=== PATIENT | female | born 1955 | race Caucasian/White ===

== ENCOUNTER 2022-07-23 14:44 | Emergency (ER) | payer BC ==
[~2022-07-23] VITALS: Ht 160 cm; Wt 63.5 kg
--- NOTE | 2022-07-23 16:19 | NUR ---
AT BEDSIDE FOR EVAL
--- NOTE | 2022-07-23 16:20 | NUR ---
IV ACCESS ESTABLISHED 20G RIGHT AC. BLOOD DRAWN AND SENT TO LAB
[2022-07-23] MEDS ORDERED: ONDANSETRON HCL/PF 4 MG/2 ML VIAL IVP ONE (16:30)
[2022-07-23] MEDS ORDERED: IV NS 0.9% 1,000 ML BAG IV ONE (16:30)
[2022-07-23] MEDS ORDERED: KETOROLAC TROMETHAMINE INJ 30 MG/ML VIAL IV ONE (16:30)
[2022-07-23] MEDS ORDERED: KETOROLAC TROMETHAMINE 15 MG/ML VIAL ONE (16:31)
[2022-07-23] MEDS ORDERED: ONDANSETRON HCL/PF 4 MG/2 ML VIAL ONE (16:31)
--- NOTE | 2022-07-23 16:40 | NUR ---
URINE SAMPLE COLLECTED AND SENT TO LAB
[2022-07-23 16:42] LABS: BASOPHILS % (AUTO) 0.7 % (0.0-2.0); EOSINOPHILS % (AUTO) 2.3 % (0.0-6.0); HEMATOCRIT 42 % (33-45); HEMOGLOBIN 13.7 g/dL (11.5-14.8); LYMPHOCYTES % (AUTO) 33.1 % (20.0-44.0); MEAN CORPUSCULAR HGB CONC 33 g/dl (31.0-36.0); MEAN CORPUSCULAR VOLUME 85 fL (82-100); MONOCYTES % (AUTO) 9.5 % (2.0-12.0); NEUTROPHILS % (AUTO) 54.4 % (43.0-81.0); PLATELET COUNT (AUTO) 258 K/uL (150-450); RED BLOOD CELL COUNT(AUTO) 4.87 MIL/uL (4.0-5.2); WHITE BLOOD COUNT (AUTO) 7.8 K/uL (4.3-11.0)
[2022-07-23 16:43] LABS: BASOPHILS # (AUTO) 0.1 K/uL (0.0-0.2); LYMPHOCYTES # (AUTO) 2.6 K/uL (0.8-4.8); MONOCYTES # (AUTO) 0.7 K/uL (0.1-1.30); NEUTROPHILS # (AUTO) 4.2 K/uL (1.8-8.9)
[2022-07-23 17:03] LABS: CALCIUM, SERUM 9.4 mg/dL (8.5-10.1); CREATININE 0.7 mg/dL (0.6-1.3); POTASSIUM 4.3 mmol/L (3.5-5.1)
[2022-07-23 17:09] LABS: ALBUMIN 3.7 g/dL (3.4-5.0); BILIRUBIN,DIRECT 0.1 mg/dL (0.0-0.2); BILIRUBIN,TOTAL 0.3 mg/dL (0.2-1.0); TOTAL PROTEIN, SERUM 6.9 g/dL (6.4-8.2)
[2022-07-23] MEDS ORDERED: IOHEXOL-300 100 ML VIAL IV ONE (17:17)
[2022-07-23] MEDS ORDERED: IV NS 0.9% 250 ML IV ONE (17:17)
[2022-07-23 19:15] LABS: BILIRUBIN,URINE NEGATIVE (NEGATIVE); COLOR,URINE YELLOW (YELLOW); LEUKOCYTE ESTERASE ,URINE NEGATIVE (NEGATIVE); NITRITE, URINE NEGATIVE (NEGATIVE); PH,URINE 6.5 (5.0-8.0); PROTEIN,URINE NEGATIVE (NEGATIVE); UGLUCOSE NEGATIVE (NEGATIVE); UROBILINOGEN,URINE 0.2 EU/dL (0.2)
[2022-07-23 19:24] LABS: BACTERIA,URINE None seen /HPF (None Seen); SQUAMOUS EPITHELIAL CELL,UR 0-2 /HPF (None Seen); WBC,URINE 0-2 /HPF (0-3)
[2022-07-23] MEDS ORDERED: FAMO20TA8 PO (19:46)
[2022-07-23] MEDS ORDERED: MAG355OR18 PO (19:46)
--- NOTE | 2022-07-23 20:00 | NUR ---
Patient discharged to home in stable condition. rx Written and verbal after care instructions given. Patient verbalizes understanding of instruction. IV removed. Catheter intact and site benign. Pressure and 4x4 applied to site. No bleeding noted. pt ambulatory with a steady gait
[2022-07-23 20:01] VITALS: BP 115/69
== END 2022-07-23 20:05 | disposition home or self-care (01) ==
LOC: ER 14:50
DX: K57.30 Diverticulosis of large intestine without perforation or abscess without bleeding (principal); K44.9 Diaphragmatic hernia without obstruction or gangrene; R10.13 Epigastric pain; R10.11 Right upper quadrant pain; R10.31 Right lower quadrant pain; R11.0 Nausea; K21.9 Gastro-esophageal reflux disease without esophagitis; Z90.49 Acquired absence of other specified parts of digestive tract
CPT/HCPCS: 99285; 74177; 96374; 96361; 96375; 85025; 80048; 83690; 80076; 81001; 36415; J2405; J7030; J7050; Q9967; J1885

== ENCOUNTER 2023-03-16 18:59 | Emergency (ER) | payer BC ==
[~2023-03-16] VITALS: Ht 160 cm; Wt 64.4 kg
[~2023-03-16 18:59] MED LIST: FAMO20TA8 PO; MAG355OR18 PO
[2023-03-16 19:42] VITALS: BP 151/65; TEMP 98.3; O2SAT 98
[2023-03-16] MEDS ORDERED: IBUP-1955 PO (20:00)
== END 2023-03-16 20:07 | disposition home or self-care (01) ==
LOC: ER 19:05
DX: S61.011D Laceration without foreign body of right thumb without damage to nail, subsequent encounter (principal); K21.9 Gastro-esophageal reflux disease without esophagitis; Z79.899 Other long term (current) drug therapy; Z90.49 Acquired absence of other specified parts of digestive tract; X58.XXXD Exposure to other specified factors, subsequent encounter

== ENCOUNTER 2023-10-01 19:02 | Emergency (ER) | payer BC ==
[~2023-10-01] VITALS: Ht 160 cm; Wt 70.3 kg
[~2023-10-01 19:02] MED LIST changes: +IBUP-1955 PO
[2023-10-01] MEDS ORDERED: IBUPROFEN 400 MG TABLET ONE (19:54)
[2023-10-01] MEDS: IBUPROFEN 400 MG TABLET PO ONE (19:55)
[2023-10-01] MEDS ORDERED: FURO-145 PO (21:54)
[2023-10-01] MEDS ORDERED: FUROSEMIDE 20 MG TABLET ONE (21:59)
[2023-10-01] MEDS: FUROSEMIDE 20 MG TABLET PO ONE (22:00)
[2023-10-01 22:29] VITALS: BP 146/86; TEMP 97.2; O2SAT 98
== END 2023-10-01 22:29 | disposition home or self-care (01) ==
LOC: ER 19:02
DX: R60.0 Localized edema (principal); M25.562 Pain in left knee; K21.9 Gastro-esophageal reflux disease without esophagitis; Z90.49 Acquired absence of other specified parts of digestive tract
CPT/HCPCS: 73564-TC; 93970-TC